=== PATIENT | female | born 1995 | race American Indian/Alaskan Native ===

== ENCOUNTER 2020-07-17 22:44 | Inpatient (IN) | payer OTHER ==
[2020-07-18] MEDS ORDERED: ePHEDrine SULFATE 50 MG/1 ML INJ IV PRN ×2 (00:24→08:56)
[2020-07-18] MEDS ORDERED: LIDOCAINE (2%) 20 MG/1 ML VIAL 20 ML MDV INFILTRATI ONE (00:24)
[2020-07-18] MEDS ORDERED: TERBUTALINE 1 MG/1 ML INJ SUB-Q PRN (00:24)
[2020-07-18] MEDS ORDERED: MINERAL OIL 30 ML ORAL LIQD PO PRN (00:24)
--- NOTE | 2020-07-18 00:29 | History and Physical Report ---
History of Present Illness Date of examination: 07/18/20 Date of admission: 07/18/2020 Chief complaint: Contractions History of present illness: 24 year old presents to L&D with regular contractions and in active labor. Patient received care at [facility]. records are available. LMP . EDC 07/19/2020. complicated by gestational diabetes which was controlled with ADA diet. Patient was also seen by [facility] during her . labs are as follows: A+, antibody screen negative, rubella immune, hepatitis B surface antigen negative, RPR nonreactive, HIV negative, 1 hour sugar test 157, (3 hour OGTT 70, 213, 198, 136), hemoglobin electrophoresis AA, chlamydia negative, gonorrhea negative, trichomonas negative, GBS negative, panorama low risk. Past History Past Medical History: other (obesity, migraine) Past Surgical History: no surgical history [employer] History: denies: chlamydia, gonorrhea, hepatitis B, hepatitis C, herpes, HIV, syphilis, trichomonas Family/Genetic History: hypertension Social history: no significant social history, full code. denies: smoking, alco hol abuse, IV drug use - Obstetrical History Expected Date of Delivery: 07/19/20 Actual Gestation: 39 Week(s) 6 Day(s) : 1 Para: 0 Hx # Term Pregnancies: 0 Number of Pregnancies: 0 Spontaneous Abortions: 0 Induced : 0 Number of Living Children: 0 Medications and Allergies Allergies Allergy/AdvReac Type Severity Reaction Status Date / Time No Known Allergies Allergy Unverified 03/22/15 03:20 Home Medications Medication Instructions Recorded Confirmed Last Taken Type Katia Perales [Amor Perales] 75 mg PO Q12H #30 tablet 03/22/15 Unknown Rx Prednisone [predniSONE 10 mg 10 mg PO .TAPER #1 tab.ds.pk 03/22/15 Unknown Rx (6-Day Pack, 21 Tabs)] traMADoL [Ultram 50 MG tab] 50 mg PO Q6HR PRN #20 tablet 03/22/15 Unknown Rx Butalb/Acetamin/Caff 50-325-40 2 tab PO Q8H PRN #20 tab 03/31/15 Unknown Rx [Fioricet] Active Meds: Active Medications Ephedrine Sulfate (Ephedrine Sulfate 50 Mg/1 Ml Inj) 10 mg IV Q2M PRN PRN Reason: Hypotension Fentanyl (Fentanyl 100 Mcg/2 Ml Inj) 100 mcg IV Q2H PRN PRN Reason: Pain,Severe (7-10) LABOR PAIN Oxytocin/Sodium Chloride (Pitocin/Ns 30 Unit/500ml) 30 units in 500 mls @ 2 mls/hr IV TITR WILLIAM; Protocol Lactated Ringer's (Lactated Ringers) 1,000 mls @ 125 mls/hr IV DIRECT WILLIAM Oxytocin/Sodium Chloride (Pitocin/Ns 30 Unit/500ml) 30 units in 500 mls @ 40 mls/hr IV TITR WILLIAM; Protocol Lidocaine (Lidocaine (2%) 20 Mg/1 Ml Vial 20 Ml Mdv) 20 ml INFILTRATI ONCE ONE Stop: 07/18/20 00:25 Mineral Oil (Mineral Oil 30 Ml Oral Liqd) 30 ml PO QHS PRN PRN Reason: Constipation Terbutaline Sulfate (Terbutaline 1 Mg/1 Ml Inj) 0.25 mg SUB-Q ONCE PRN PRN Reason: Hyperstimulation/Hypertonicity Review of Systems All systems: negative (contractions) - Vital Signs Vital signs: Vital Signs Pulse BP Pulse Ox 100 H 137/85 99 07/17/20 23:05 07/17/20 23:05 07/17/20 23:05 Temp Pulse Resp BP Pulse Ox 98.3 F 101 H 18 137/98 98 07/17/20 23:09 07/17/20 23:55 07/17/20 23:09 07/17/20 23:09 07/17/20 23:55 - Physical Exam Abdomen: Positive: normal appearance, soft. Negative: distention, tenderness, guarding, rigidity Genitourinary (Female): Positive: normal external genitalia, normal perenium. Negative: perineal/vulvar lesions Vagina: Positive: normal moisture Uterus: Positive: enlarged. Negative: tender Anus/Rectum: Positive: normal perianal skin Extremities: Positive: normal. Negative: tenderness, edema - Obstetrical FHR: category 1 Uterine Contraction Monitor Mode: External Cervical Dilatation: 4.5 Cervical Effacement Percentage: 90 station: -2 Uterine Contraction Pattern: Regular Uterine Contraction Intensity: Moderate Results All other labs normal. Assessment and Plan A: at 39 weeks, 6 days gestation. GDM, diet controlled. Active labor. GBS negative. P: Admit. US for EFW. Follow blood sugars.
[2020-07-18] MEDS ORDERED: OXYTOCIN DRIP 30 UNITS/500 ML BAG IV SCH ×2 (01:00)
[2020-07-18] MEDS: fentaNYL 100 MCG/2 ML INJ IV PRN ×3 (01:01→14:53)
[2020-07-18 01:18] LABS: Hemoglobin 12.9 gm/dl (10.1-14.3); Mean Corpuscular HGB Conc 34 % (30-34); Mean Corpuscular Volume 95 fl (79-97); Platelet Count 158 K/mm3 (140-440); Red Blood Count 4.02 M/mm3 (3.65-5.03); Red Cell Distribution Width 15.5 % (13.2-15.2)
--- NOTE | 2020-07-18 02:39 | Ultrasound Report ---
Limited obstetrical ultrasound, 07/18/2020 INDICATION: Evaluate weight COMPARISON: None Findings: There is a single intrauterine . BPD = 9.3 cm = 38 weeks, 0 day(s). Head circumference = 33.3 cm = 38 weeks, 0 day(s). Abdominal circumference = 33.4 cm = 37 weeks, 2 day(s). Femur length = 7.8 cm = 39 weeks, 6 day(s). Overall estimated sonographic age = was not provided heart rate is 126 beats per minute. Estimated weight is 3394 grams (7 lbs. 8 oz.) Impression: 1. Limited obstetrical ultrasound with details as above. Signer Name: Claudine Dotson MD Signed: 07/18/2020 2:35 AM Workstation Name: [id number]
[2020-07-18] MEDS: LACTATED RINGERS 1,000 ML IV SCH ×2 (04:34→09:15)
[2020-07-18] MEDS ORDERED: NALOXONE 2 MG/2 ML INJ IV PRN (08:56)
[2020-07-18] MEDS ORDERED: fentaNYL-BUPIV 2 MCG/ML-0.125% 200 MCG/100 ML BAG EPIDURAL SCH (09:00)
--- NOTE | 2020-07-18 10:16 | Progress Note ---
Labor Epidural - Labor Epidural Start Time: 09:15 Stop Time: :17 Performed by:: BOWEN LU Procedure: Patient is requesting a laboring epidural for laboring pain. Patient IDed, H&P reviewed, all questions and concerns were answered, and consent was signed. Timeout was performed at bedside. Patient in sitting position. Sterile prep and drape was performed. [3] ml of 1% lidocaine skin wheal at L[3]- L [4]. 18- gauge Tuohy epidural needle was advanced to loss of resistance with air technique. Negative CSF negative blood. Epidural catheter advanced to [12] centimeters. [NEGATIVE] Aspiration [NEGATIVE] test dose. Sterile dressing applied. Patient tolerated procedure.
--- NOTE | 2020-07-18 11:06 | Event Note ---
Date: 07/18/20 SVE 0. Will labor down.
[2020-07-18] MEDS ORDERED: ONDANSETRON 4 MG/2 ML INJ IV PRN (15:25)
[2020-07-18] MEDS ORDERED: WITCH HAZEL/ GLYCERIN PAD TP PRN (15:25)
[2020-07-18] MEDS ORDERED: diphenhydrAMINE 25 MG CAP PO PRN (15:25)
[2020-07-18] MEDS ORDERED: LANOLIN/ZINC/DIMETHICONE (LANSINOH) 7 GM TP PRN (15:25)
[2020-07-18] MEDS ORDERED: PROMETHAZINE 25 MG RECT SUPP PR PRN (15:25)
[2020-07-18] MEDS ORDERED: MAGNESIUM HYDROXIDE (MOM) ORAL LIQD UDC PO PRN (15:25)
[2020-07-18] MEDS ORDERED: PROMETHAZINE 25 MG TAB PO PRN (15:25)
--- NOTE | 2020-07-18 15:36 | Procedure Note ---
OB Delivery Note - Delivery Date of Delivery: 07/18/20 Surgeon: JANETH OROSCO Estimated blood loss: other (250 cc) - Vaginal Delivery presentation: vertex Delivery position: OA Intrapartum events: febrile- temp >100.3 Delivery induction: none Delivery augmentation: rupture of membranes (AROM just prior to delivery ) Delivery monitor: external FHT, external uterine Route of delivery: Delivery placenta: spontaneous Delivery cord: 3 umbilical vessels Episiotomy: none Delivery laceration: 2nd degree Delivery repair: vicryl Anesthesia: epidural Delivery comments: Spontaneous vaginal delivery at 14:22 of liveborn male infant weighing 6 lb. 15 oz. over 2nd degree perineal laceration with apgars of 9/9. Epidural anesthesia. hand presented alongside head/neck. was atraumatic. Spontaneous cry and respirations. Baby placed skin to skin with mom immediately after delivery. 3 vessel cord double clamped and cut (delayed cord clamping). Spontaneous delivery of intact placenta and membranes by White mechanism. EBL 250 cc. Pitocin to IV fluids after delivery of placenta. Fundus firm and midline. 2nd degree perineal laceration repaired with 2-0 and 3-0 vicryl in usual sterile fashion. No other lacerations noted. Vaginal sweep negative. Sponge count correct. Mother and baby stable.
[2020-07-18] MEDS: IBUPROFEN 600 MG TAB PO SCH (18:21)
[2020-07-18] MEDS: WITCH HAZEL/ GLYCERIN PAD TP PRN (18:22)
[2020-07-19] MEDS: DOCUSATE SODIUM 100 MG CAP PO SCH ×3 (00:16→23:44)
[2020-07-19] MEDS: IBUPROFEN 600 MG TAB PO SCH ×5 (00:17→23:44)
[2020-07-19] MEDS: HYDROcodone/ACETAMINOPHEN 5-325 MG TAB PO PRN ×2 (02:59→15:07)
--- NOTE | 2020-07-19 13:40 | Progress Note ---
Assessment and Plan A: day 1 S/P . P: Continue current management. Anticipate discharge home tomorrow. Subjective - Subjective Date of service: 07/19/20 Principal diagnosis: day 1 S/P Patient reports: appetite normal, voiding normally, pain well controlled, flatus, ambulating normally, no dizzy ambulation, no nauseated : doing well Objective - Vital Signs Latest vital signs: Vital Signs Temp Pulse Resp BP BP Pulse Ox 07/19/20 12:08 98.1 F 94 H 20 118/50 95 07/19/20 10:59 20 07/19/20 07:27 97.9 F 94 H 20 124/80 98 07/18/20 23:54 97.6 F 103 H 20 122/79 95 07/18/20 20:13 97.8 F 120 H 20 121/61 93 07/18/20 18:21 20 07/18/20 17:00 98.6 F 98 H 20 135/67 07/18/20 16:17 98 H 93 07/18/20 16:13 113 H 133/67 94 07/18/20 16:10 104 H 98 07/18/20 16:05 111 H 97 07/18/20 16:00 113 H 96 07/18/20 15:58 109 H 131/64 07/18/20 15:55 116 H 95 07/18/20 15:52 116 H 94 07/18/20 15:50 120 H 94 07/18/20 15:47 116 H 94 07/18/20 15:46 114 H 143/65 07/18/20 15:45 113 H 95 07/18/20 15:43 118 H 178/76 07/18/20 15:40 117 H 93 07/18/20 15:35 124 H 92 07/18/20 15:30 125 H 93 07/18/20 15:25 109 H 90 07/18/20 15:24 71 L 07/18/20 15:20 112 H 97 07/18/20 15:15 125 H 96 07/18/20 15:13 115 H 120/60 07/18/20 15:10 117 H 96 07/18/20 15:05 118 H 90 07/18/20 15:01 99.6 F 07/18/20 15:00 119 H 90 07/18/20 14:59 117 H 94 07/18/20 14:58 115 H 122/57 07/18/20 14:55 115 H 100 07/18/20 14:50 117 H 100 07/18/20 14:45 121 H 100 07/18/20 14:43 115 H 128/59 07/18/20 14:40 120 H 100 07/18/20 14:35 125 H 100 07/18/20 14:30 129 H 100 07/18/20 14:28 120 H 124/58 07/18/20 14:25 149 H 100 07/18/20 14:20 144 H 100 07/18/20 14:15 127 H 115/73 100 07/18/20 14:10 100.8 F H 122 H 100 07/18/20 14:05 124 H 100 07/18/20 14:00 108 H 99 07/18/20 13:59 115 H 114/68 07/18/20 13:55 112 H 100 07/18/20 13:50 99 H 100 07/18/20 13:45 99 H 100 07/18/20 13:43 99 H 104/59 07/18/20 13:40 100 H 100 Intake and Output 07/18/20 07/19/20 07/19/20 23:59 07:59 15:59 Intake Total 120 Output Total 400 Balance -400 120 Intake: Oral 120 Output: Urine 400 Indwelling Catheter 400 Other: Total, Intake Amount 120 Total, Output Amount 400 # Voids Void 1 - Exam Cardiovascular: Present: Regular rate Lungs: Present: Clear to auscultation Abdomen: Present: normal appearance, soft. Absent: distention, tenderness, guarding, rigidity Uterus: Present: normal, firm, fundal height below umbilicus. Absent: bogginess, tenderness Extremities: Present: normal. Absent: tenderness, edema
[2020-07-19 15:14] LABS: Hematocrit 32.8 % (30.3-42.9); Hemoglobin 11.2 gm/dl (10.1-14.3)
[2020-07-20] MEDS: WITCH HAZEL/ GLYCERIN PAD TP PRN (05:26)
[2020-07-20] MEDS: HYDROcodone/ACETAMINOPHEN 5-325 MG TAB PO PRN (05:26)
--- NOTE | 2020-07-20 07:33 | Event Note ---
Date: 07/20/20 Patient complains of dysuria. Denies flank pain, fever, or chills. Has had mild tachycardia. CBC, UA, urine C&S ordered.
[2020-07-20] MEDS: IBUPROFEN 600 MG TAB PO SCH (09:40)
[2020-07-20] MEDS: DOCUSATE SODIUM 100 MG CAP PO SCH (09:41)
[2020-07-20 10:56] LABS: Bacteria,Urine 1+ /HPF (Negative); Bilirubin,Urine NEG (Negative); Blood,Urine LG (Negative); Color,Urine Yellow (Yellow); Mucus,Urine FEW /HPF; Urobilinogen,Urine < 2.0 mg/dL (<2.0)
[2020-07-20 11:00] LABS: RBC,Urine > 182.0 /HPF (0.0-6.0)
--- NOTE | 2020-07-20 12:57 | Progress Note ---
Assessment and Plan 0: Afebrile, VSS A: s/p p: D/C home if stable if no spike in temp by 2pm Subjective - Subjective Date of service: 07/20/20 Principal diagnosis: day 1 S/P Patient reports: appetite normal, voiding normally, pain well controlled, ambulating normally : doing well, bottle feeding Objective - Vital Signs Latest vital signs: Vital Signs Temp Pulse Resp BP Pulse Ox 07/20/20 08:30 97.7 F 104 H 18 131/86 97 07/20/20 05:26 20 07/20/20 00:05 98.7 F 98 H 18 131/78 98 07/19/20 23:44 20 07/19/20 15:57 97.7 F 94 H 20 120/66 96 07/19/20 15:07 20 Intake and Output 07/19/20 07/20/20 07/20/20 22:59 06:59 14:59 Intake Total 120 600 Balance 120 600 Intake: Oral 120 120 Intake, Free Water 480 Other: Total, Intake Amount 120 120 # Voids Void 1 1 1 - Exam Breasts: Present: normal Abdomen: Present: normal appearance, soft, normal bowel sounds Vulva: both: normal Uterus: Present: normal, firm, fundal height below umbilicus Extremities: Present: normal Incision: Present: normal, dry, intact, other (2nd degree vaginal repair) - Labs Labs: Abnormal lab results 07/20/20 Range/Units 08:20 Urine WBC (Auto) 124.0 H (0.0-6.0) /HPF
--- NOTE | 2020-07-20 13:25 | Discharge Summary ---
Providers - Providers Date of Admission: 07/18/20 00:24 Date of discharge: 07/20/20 Attending physician: PARAG CALABRESE Primary care physician: PARAG CALABRESE Hospitalization Reason for admission: active labor Delivery: Episiotomy: none Laceration: 2nd degree Incision: normal, dry, intact Other procedures: none complications: other (low grade fever of 100.8) Discharge diagnosis: IUP at term delivered baby: male Hospital course: Pt was admitted to hosp in active labor.She had a and dev a isolated low grade fever of 100.8 on 07/18. Pt was d/cd home in stable condition after 48 hrs w/o a fever. Condition at discharge: Stable Disposition: DC-01 TO HOME OR SELFCARE Plan - Discharge Medications Prescriptions: Ibuprofen [Motrin 600 MG tab] 600 mg PO Q6H #30 tablet - Provider Discharge Summary Activity: no sex for 6 weeks, no heavy lifting 4 weeks Diet: routine Instructions: routine Additional instructions: [] Smoking cessation referral if applicable(refer to patient education folder for contact #) [] Refer to [facility]'s [facility] Booklet Call your doctor immediately for: * Fever > 100.5 * Heavy vaginal bleeding ( >1 pad per hour) * Severe persistent headache * Shortness of breath * Reddened, hot, painful area to leg or breast * Drainage or odor from incision. * Keep incision clean and dry at all times and follow doctor's instructions regarding bathing/showering - Follow up plan Follow up: PARAG CALABRESE MD [Primary Care Provider] - 6 Weeks Forms: [facility] Discharge Summary
[2020-07-20 13:47] VITALS: BP 126/73
[2020-07-20] MEDS ORDERED: DIPHtheria,PERTUSSIS(ACELL),TETANUS VACCINE/PF 0.5 ML VIAL IM ONE (15:00)
[2020-07-20 15:24] LABS: Basophils % (Auto) 0.4 % (0.0-1.8); Eosinophils # (Auto) 0.1 K/mm3 (0.0-0.4); Eosinophils % (Auto) 1.8 % (0.0-4.3); Hematocrit 32.7 % (30.3-42.9); Lymphocytes # (Auto) 1.9 K/mm3 (1.2-5.4); Lymphocytes % (Auto) 34.8 % (13.4-35.0); Mean Corpuscular HGB Conc 34 % (30-34); Mean Corpuscular Volume 95 fl (79-97); Monocytes # (Auto) 0.5 K/mm3 (0.0-0.8); Monocytes % (Auto) 9.8 % (0.0-7.3); Platelet Count 193 K/mm3 (140-440); Red Blood Count 3.44 M/mm3 (3.65-5.03); Red Cell Distribution Width 15.5 % (13.2-15.2)
== END 2020-07-20 16:00 | disposition home or self-care (01) | DRG 775 ==
LOC: TRG 22:44 → APU 22:46 → LD 07-18 00:24 → TRG 07-18 00:24 → OB 07-18 17:24
PROVIDERS: ADMIT Obstetrics & Gynecology; ATTEND Obstetrics & Gynecology
PROC: 10E0XZZ Delivery of Products of Conception, External Approach (ICD-10-PCS; principal; 2020-07-18)
PROC: 0KQM0ZZ Repair Perineum Muscle, Open Approach (ICD-10-PCS; 2020-07-18)
PROC: 3E0R3BZ Introduction of Anesthetic Agent into Spinal Canal, Percutaneous Approach (ICD-10-PCS; 2020-07-18)
PROC: 00HU33Z Insertion of Infusion Device into Spinal Canal, Percutaneous Approach (ICD-10-PCS; 2020-07-18)
PROC: 10907ZC Drainage of Amniotic Fluid, Therapeutic from Products of Conception, Via Natural or Artificial Opening (ICD-10-PCS; 2020-07-18)
PROC: 3E0234Z Introduction of Serum, Toxoid and Vaccine into Muscle, Percutaneous Approach (ICD-10-PCS; 2020-07-20)
PROC: 3E0134Z Introduction of Serum, Toxoid and Vaccine into Subcutaneous Tissue, Percutaneous Approach (ICD-10-PCS; 2020-07-20)
DX: O24.420 Gestational diabetes mellitus in childbirth, diet controlled (principal); Z20.828 Contact with and (suspected) exposure to other viral communicable diseases; O99.354 Diseases of the nervous system complicating childbirth; G43.909 Migraine, unspecified, not intractable, without status migrainosus; O99.214 Obesity complicating childbirth; O70.1 Second degree perineal laceration during delivery; Z37.0 Single live birth; Z3A.36 36 weeks gestation of pregnancy; Z82.49 Family history of ischemic heart disease and other diseases of the circulatory system; Z79.899 Other long term (current) drug therapy; Z23 Encounter for immunization
CPT/HCPCS: 36415; 76815; 81001; 82962; 85014; 85018; 85025; 85027; 86592; 86850; 86900; 86901; 87086; 88307; 90471; 90715; G0378; J2590; J3010; J7120; U0003